=== PATIENT | female | born 1965 | race Two or more races ===

== ENCOUNTER 2018-07-01 18:54 | Inpatient (IN) | payer SELFPAY ==
[~2018-07-01] VITALS: Ht 167.6 cm; Wt 80.6 kg
[2018-07-01 20:59] LABS: Basophils # (auto) 0 uL; Basophils % (auto) 0.1 % (0.0-2.0); Eosinophils # (auto) 0 uL; Hematocrit 44.4 % (36.0-46.0); Hemoglobin 14.7 g/dL (12.2-16.2); Lymphocytes # (auto) 1.2 uL; Lymphocytes % (auto) 6.1 % (10.0-50.0); Mean Corpuscular Hemoglobin 27.4 pg (28.0-32.0); Mean Corpuscular Hgb Conc. 33.1 g/dL (32.0-36.0); Mean Corpuscular Volume 82.7 fL (80.0-100.0); Monocytes % (auto) 5.5 % (0.0-12.0); Neutrophils % (auto) 88.3 % (37.0-80.0); Platelet Count (auto) 395 10^3/uL (140-450); Red Blood Cells 5.37 10^6/uL (4.0-5.20); Red Cell Distribution Width 14.9 % (11.8-14.3); White Blood Cell 19.2 10^3/uL (4.4-10.8)
[2018-07-01 21:08] LABS: Albumin 3.5 g/dL (3.4-5.0); BUN/Creatinine Ratio 19.3; Calcium 9.6 mg/dL (8.5-10.1); Potassium 3.7 mmol/L (3.5-5.1)
[2018-07-01 21:11] LABS: Bilirubin, Total 0.7 mg/dL (0.2-1.0); Total Protein 10.4 g/dL (6.4-8.2)
[2018-07-01] MEDS ORDERED: HYDROcodone-ACET 5/325MG TAB PO ONE (21:15)
[2018-07-01] MEDS ORDERED: ONDANSETRON HCL 4 MG/2 ML VIAL IV ONE (21:30)
[2018-07-01] MEDS ORDERED: fentaNYL CITRATE 100 MCG/2 ML VL IV ONE (21:30)
[2018-07-01] MEDS ORDERED: SODIUM CHLORIDE 0.9% 1,000 ML IV ONE (21:45)
[2018-07-01] MEDS ORDERED: LORazepam 2MG/ML-1ML VIAL IV ONE (21:45)
[2018-07-01] MEDS ORDERED: LEVOFLOXACIN 750MG 150 ML IV ONE (22:15)
[2018-07-02] MEDS ORDERED: VANCOMYCIN PER PHARMACY 0 MG IV SCH
[2018-07-02] MEDS ORDERED: ACETAMINOPHEN 500 MG TAB PO PRN
[2018-07-02] MEDS ORDERED: VANCOMYCIN 1GM/250ML 250 ML IV ONE (01:00)
[2018-07-02] MEDS: PIPERACILLIN-TAZOB 3.375GM 100 ML IV SCH ×5 (01:33→23:28)
[2018-07-02] MEDS: SODIUM CHLORIDE 0.9% 1,000 ML IV SCH ×3 (05:11→20:00)
[2018-07-02 05:44] LABS: Basophils # (auto) 0 uL; Basophils % (auto) 0.2 % (0.0-2.0); Eosinophils # (auto) 0 uL; Eosinophils % (auto) 0.1 % (0.0-7.0); Hematocrit 40.1 % (36.0-46.0); Hemoglobin 13.6 g/dL (12.2-16.2); Lymphocytes # (auto) 0.8 uL; Lymphocytes % (auto) 6.4 % (10.0-50.0); Mean Corpuscular Hgb Conc. 33.9 g/dL (32.0-36.0); Mean Corpuscular Volume 82.7 fL (80.0-100.0); Monocytes # (auto) 0.8 uL; Monocytes % (auto) 6.2 % (0.0-12.0); Neutrophils # (auto) 11.3 uL; Neutrophils % (auto) 87.1 % (37.0-80.0); Platelet Count (auto) 324 10^3/uL (140-450); Red Blood Cells 4.85 10^6/uL (4.0-5.20); Red Cell Distribution Width 14.9 % (11.8-14.3); White Blood Cell 12.9 10^3/uL (4.4-10.8)
[2018-07-02 05:50] VITALS: BP 128/82
[2018-07-02 05:59] LABS: BUN/Creatinine Ratio 31.5; Calcium 8.6 mg/dL (8.5-10.1); Potassium 3.3 mmol/L (3.5-5.1)
[2018-07-02] MEDS ORDERED: metroNIDAZOLE 500MG/100ML 100 ML IV SCH (06:00)
[2018-07-02 09:00] VITALS: BP 133/79
[2018-07-02] MEDS: MORPHINE SULFATE 4 MG/ML SYR/VIAL IV PRN ×3 (09:20→20:34)
[2018-07-02] MEDS: ONDANSETRON HCL 4 MG/2 ML VIAL IV PRN ×3 (09:20→20:34)
[2018-07-02] MEDS ORDERED: GASTROGRAFIN 120 ML SOL ONE (11:10)
[2018-07-02 13:00] VITALS: BP 136/83
[2018-07-02] MEDS: VANCOMYCIN 750 MG in D5W 5% 250 ML IV SCH (14:46)
[2018-07-02 15:21] LABS: Urine Bacteria NONE SEEN /hpf (None Seen); Urine Blood 2+ /uL (Negative); Urine Specific Gravity 1.021 (1.001-1.035); Urine WBC 3 /hpf (0 - 5)
[2018-07-02 17:00] VITALS: BP 126/86
[2018-07-02 22:00] VITALS: BP 124/74
[2018-07-03] MEDS: VANCOMYCIN 750 MG in D5W 5% 250 ML IV SCH (01:40)
[2018-07-03] MEDS: ONDANSETRON HCL 4 MG/2 ML VIAL IV PRN ×2 (03:10→09:01)
[2018-07-03] MEDS: MORPHINE SULFATE 4 MG/ML SYR/VIAL IV PRN ×2 (03:16→09:00)
[2018-07-03] MEDS: PIPERACILLIN-TAZOB 3.375GM 100 ML IV SCH ×2 (05:42→12:14)
[2018-07-03 05:44] VITALS: BP 134/84
[2018-07-03] MEDS: SODIUM CHLORIDE 0.9% 1,000 ML IV SCH (06:00)
[2018-07-03] MEDS ORDERED: PANTOPRAZOLE 40 MG/10 ML VIAL IV SCH (06:00)
[2018-07-03 08:16] LABS: Basophils # (auto) 0 uL; Basophils % (auto) 0.2 % (0.0-2.0); Eosinophils # (auto) 0.1 uL; Eosinophils % (auto) 0.7 % (0.0-7.0); Hematocrit 38.1 % (36.0-46.0); Hemoglobin 12.9 g/dL (12.2-16.2); Lymphocytes # (auto) 0.8 uL; Lymphocytes % (auto) 9.1 % (10.0-50.0); Mean Corpuscular Hemoglobin 27.8 pg (28.0-32.0); Mean Corpuscular Hgb Conc. 33.7 g/dL (32.0-36.0); Mean Corpuscular Volume 82.5 fL (80.0-100.0); Monocytes # (auto) 0.9 uL; Monocytes % (auto) 9.4 % (0.0-12.0); Neutrophils # (auto) 7.3 uL; Neutrophils % (auto) 80.6 % (37.0-80.0); Platelet Count (auto) 363 10^3/uL (140-450); Red Blood Cells 4.62 10^6/uL (4.0-5.20); Red Cell Distribution Width 15.5 % (11.8-14.3); White Blood Cell 9.1 10^3/uL (4.4-10.8)
[2018-07-03 08:30] LABS: Albumin 2.9 g/dL (3.4-5.0); BUN/Creatinine Ratio 20.2; Calcium 8.5 mg/dL (8.5-10.1); Potassium 3.2 mmol/L (3.5-5.1)
[2018-07-03 08:31] LABS: Bilirubin, Total 0.7 mg/dL (0.2-1.0); Total Protein 8.6 g/dL (6.4-8.2)
[2018-07-03 09:00] VITALS: BP 133/91
[2018-07-03 13:00] VITALS: BP 153/91
[2018-07-03] MEDS ORDERED: POTASSIUM CHL 20MEQ/100ML 100 ML IV ONE (14:30)
[2018-07-03] MEDS: SOD CHL 0.9%/ KCL 20MEQ 1,000 ML IV SCH (14:48)
[2018-07-03] MEDS: metroNIDAZOLE 500MG/100ML 100 ML IV SCH ×2 (14:48→22:57)
[2018-07-03 17:00] VITALS: BP 125/82
[2018-07-03] MEDS: cefTRIAXone 1GM/50ML D5W 50 ML IV SCH (18:41)
[2018-07-03 22:00] VITALS: BP 120/76
[2018-07-04] MEDS: SOD CHL 0.9%/ KCL 20MEQ 1,000 ML IV SCH (00:30)
[2018-07-04] MEDS: ONDANSETRON HCL 4 MG/2 ML VIAL IV PRN ×2 (02:35→10:38)
[2018-07-04] MEDS: MORPHINE SULFATE 10 MG/ML INJ 1ML SDV IV PRN ×2 (02:35→10:38)
[2018-07-04 05:29] VITALS: BP 123/76
[2018-07-04] MEDS: metroNIDAZOLE 500MG/100ML 100 ML IV SCH (06:05)
[2018-07-04 06:21] LABS: Basophils # (auto) 0 uL; Basophils % (auto) 0.3 % (0.0-2.0); Eosinophils # (auto) 0.2 uL; Eosinophils % (auto) 2.5 % (0.0-7.0); Hemoglobin 11.4 g/dL (12.2-16.2); Lymphocytes # (auto) 1.2 uL; Lymphocytes % (auto) 18.2 % (10.0-50.0); Mean Corpuscular Hgb Conc. 33.6 g/dL (32.0-36.0); Mean Corpuscular Volume 83.3 fL (80.0-100.0); Monocytes # (auto) 0.9 uL; Monocytes % (auto) 13.4 % (0.0-12.0); Neutrophils # (auto) 4.4 uL; Neutrophils % (auto) 65.6 % (37.0-80.0); Platelet Count (auto) 318 10^3/uL (140-450); Red Blood Cells 4.08 10^6/uL (4.0-5.20); Red Cell Distribution Width 15.4 % (11.8-14.3); White Blood Cell 6.7 10^3/uL (4.4-10.8)
[2018-07-04 06:49] LABS: Albumin 2.4 g/dL (3.4-5.0); BUN/Creatinine Ratio 14.5; Calcium 8.1 mg/dL (8.5-10.1); Potassium 3.4 mmol/L (3.5-5.1)
[2018-07-04 06:53] LABS: Bilirubin, Total 0.4 mg/dL (0.2-1.0); Total Protein 7.1 g/dL (6.4-8.2)
[2018-07-04 08:56] VITALS: BP 114/73
[2018-07-04] MEDS: cefTRIAXone 1GM/50ML D5W 50 ML IV SCH (09:04)
[2018-07-04] MEDS ORDERED: POTASSIUM CHL 20 Meq TABLET PO ONE (09:45)
[2018-07-04] MEDS ORDERED: LEVOFLOXACIN 500 MG TAB PO ONE (12:00)
[2018-07-04 13:01] VITALS: BP 133/79
[2018-07-04] MEDS: metroNIDAZOLE 500 MG TAB PO SCH ×2 (15:07→21:48)
[2018-07-04 17:47] VITALS: BP 122/74
[2018-07-04] MEDS: HYDROcodone-ACET 5/325MG TAB PO PRN (17:54)
[2018-07-04 22:19] VITALS: BP 122/70
[2018-07-05] MEDS: HYDROcodone-ACET 5/325MG TAB PO PRN ×2 (02:09→06:50)
[2018-07-05 04:50] VITALS: BP 132/70
[2018-07-05] MEDS: metroNIDAZOLE 500 MG TAB PO SCH (06:18)
[2018-07-05 08:41] VITALS: BP 126/78
[2018-07-05] MEDS ORDERED: LEVOFLOXACIN 500 MG TAB PO SCH (10:00)
[2018-07-05] MEDS ORDERED: MORPHINE SULFATE 4 MG/ML SYR/VIAL IV PRN (10:00)
[2018-07-05] MEDS: LEVOFLOXACIN 500MG 100 ML IV SCH (10:28)
[2018-07-05] MEDS: SOD CHL 0.9%/ KCL 20MEQ 1,000 ML IV SCH ×2 (10:29→22:38)
[2018-07-05 10:43] LABS: Basophils # (auto) 0 uL; Basophils % (auto) 0.3 % (0.0-2.0); Eosinophils # (auto) 0.2 uL; Eosinophils % (auto) 2.1 % (0.0-7.0); Hematocrit 33.8 % (36.0-46.0); Hemoglobin 11.1 g/dL (12.2-16.2); Lymphocytes # (auto) 1.7 uL; Lymphocytes % (auto) 17.9 % (10.0-50.0); Mean Corpuscular Hemoglobin 27.2 pg (28.0-32.0); Mean Corpuscular Hgb Conc. 32.9 g/dL (32.0-36.0); Mean Corpuscular Volume 82.7 fL (80.0-100.0); Monocytes # (auto) 0.9 uL; Monocytes % (auto) 9.6 % (0.0-12.0); Neutrophils # (auto) 6.9 uL; Neutrophils % (auto) 70.1 % (37.0-80.0); Platelet Count (auto) 353 10^3/uL (140-450); Red Blood Cells 4.09 10^6/uL (4.0-5.20); Red Cell Distribution Width 15.4 % (11.8-14.3); White Blood Cell 9.8 10^3/uL (4.4-10.8)
[2018-07-05 10:51] LABS: INR 1.06 (0.9-1.15); Partial Thromboplastin Time 30.6 sec (23.78-33.04); Prothrombin Time 11.3 sec (9.27-12.13)
[2018-07-05 10:54] LABS: Albumin 2.4 g/dL (3.4-5.0); BUN/Creatinine Ratio 6.3; Calcium 8.6 mg/dL (8.5-10.1); Potassium 3.1 mmol/L (3.5-5.1)
[2018-07-05 10:56] LABS: Bilirubin, Total 0.4 mg/dL (0.2-1.0); Total Protein 7.1 g/dL (6.4-8.2)
[2018-07-05] MEDS ORDERED: POTASSIUM CHLORIDE 40 MEQ, LIDOCAINE 1% (LOCAL ANESTH.) 4 ML in SODIUM CHL 0.9% 100 ML IV ONE (11:15)
[2018-07-05] MEDS: ONDANSETRON HCL 4 MG/2 ML VIAL IV PRN ×2 (13:10→23:52)
[2018-07-05] MEDS: MORPHINE SULF INJ 2 MG/ML SYRINGE 1ML IV PRN ×2 (13:11→23:53)
[2018-07-05 13:57] VITALS: BP 143/88
[2018-07-05] MEDS: metroNIDAZOLE 500MG/100ML 100 ML IV SCH ×2 (14:24→22:38)
[2018-07-05 17:23] VITALS: BP 143/78
[2018-07-05 21:59] VITALS: BP 131/83
[2018-07-05] MEDS: PANTOPRAZOLE 40 MG/10 ML VIAL IV SCH (22:38)
[2018-07-06 05:02] VITALS: BP 151/74
[2018-07-06] MEDS: metroNIDAZOLE 500MG/100ML 100 ML IV SCH ×3 (06:51→21:23)
[2018-07-06 09:00] VITALS: BP 131/76
[2018-07-06] MEDS: SOD CHL 0.9%/ KCL 20MEQ 1,000 ML IV SCH ×3 (09:50→23:32)
[2018-07-06] MEDS: LEVOFLOXACIN 500MG 100 ML IV SCH (09:50)
[2018-07-06] MEDS: PANTOPRAZOLE 40 MG/10 ML VIAL IV SCH ×2 (09:50→21:23)
[2018-07-06] MEDS: MORPHINE SULF INJ 2 MG/ML SYRINGE 1ML IV PRN (09:51)
[2018-07-06] MEDS: ONDANSETRON HCL 4 MG/2 ML VIAL IV PRN (09:51)
[2018-07-06 13:00] VITALS: BP 146/90
[2018-07-06 17:00] VITALS: BP 137/83
[2018-07-06 22:00] VITALS: BP 143/84
[2018-07-07] MEDS: HYDROcodone-ACET 5/325MG TAB PO PRN ×2 (01:21→23:14)
[2018-07-07 05:09] VITALS: BP 146/91
[2018-07-07] MEDS: metroNIDAZOLE 500MG/100ML 100 ML IV SCH ×3 (05:38→21:31)
[2018-07-07 09:00] VITALS: BP 144/94
[2018-07-07] MEDS: SOD CHL 0.9%/ KCL 20MEQ 1,000 ML IV SCH ×2 (09:28→21:31)
[2018-07-07] MEDS: PANTOPRAZOLE 40 MG TAB PO SCH ×2 (11:10→21:31)
[2018-07-07] MEDS: LEVOFLOXACIN 500MG 100 ML IV SCH (11:10)
[2018-07-07] MEDS: MORPHINE SULF INJ 2 MG/ML SYRINGE 1ML IV PRN (12:26)
[2018-07-07] MEDS: ONDANSETRON HCL 4 MG/2 ML VIAL IV PRN (12:27)
[2018-07-07 13:00] VITALS: BP 130/87
[2018-07-07] MEDS ORDERED: MORPHINE SULFATE 4 MG/ML SYR/VIAL IV PRN (15:30)
[2018-07-07 17:00] VITALS: BP 138/94
[2018-07-07 21:59] VITALS: BP 148/88
[2018-07-08 05:00] VITALS: BP 150/89
[2018-07-08] MEDS: metroNIDAZOLE 500MG/100ML 100 ML IV SCH ×3 (05:18→21:30)
[2018-07-08 07:51] LABS: Basophils # (auto) 0 uL
[2018-07-08 07:53] LABS: Basophils % (auto) 0.3 % (0.0-2.0); Eosinophils # (auto) 0.2 uL; Eosinophils % (auto) 1.5 % (0.0-7.0); Hematocrit 34.6 % (36.0-46.0); Hemoglobin 11.5 g/dL (12.2-16.2); Lymphocytes # (auto) 2.1 uL; Lymphocytes % (auto) 19.4 % (10.0-50.0); Mean Corpuscular Hemoglobin 27.6 pg (28.0-32.0); Mean Corpuscular Hgb Conc. 33.2 g/dL (32.0-36.0); Mean Corpuscular Volume 82.9 fL (80.0-100.0); Monocytes # (auto) 0.8 uL; Monocytes % (auto) 7.3 % (0.0-12.0); Neutrophils # (auto) 7.7 uL; Neutrophils % (auto) 71.5 % (37.0-80.0); Platelet Count (auto) 455 10^3/uL (140-450); Red Blood Cells 4.17 10^6/uL (4.0-5.20); Red Cell Distribution Width 15.2 % (11.8-14.3); White Blood Cell 10.8 10^3/uL (4.4-10.8)
[2018-07-08 08:00] VITALS: BP 157/92
[2018-07-08 08:00] LABS: Calcium 8.6 mg/dL (8.5-10.1); Potassium 3.7 mmol/L (3.5-5.1)
[2018-07-08 08:02] LABS: BUN/Creatinine Ratio 4.6
[2018-07-08] MEDS: SOD CHL 0.9%/ KCL 20MEQ 1,000 ML IV SCH ×2 (08:50→16:00)
[2018-07-08] MEDS: ONDANSETRON HCL 4 MG/2 ML VIAL IV PRN (09:04)
[2018-07-08] MEDS ORDERED: METOCLOPRAMIDE HCL 5MG/ml INJ 2ml VIAL IV ONE (09:15)
[2018-07-08] MEDS: LEVOFLOXACIN 500MG 100 ML IV SCH (09:51)
[2018-07-08] MEDS: PANTOPRAZOLE 40 MG TAB PO SCH ×2 (09:52→21:31)
[2018-07-08 12:00] VITALS: BP 143/90
[2018-07-08] MEDS: METOCLOPRAMIDE HCL 5MG/ml INJ 2ml VIAL IV SCH ×2 (13:46→21:30)
[2018-07-08 16:00] VITALS: BP 150/80
[2018-07-08 22:00] VITALS: BP 128/91
[2018-07-09] MEDS: SOD CHL 0.9%/ KCL 20MEQ 1,000 ML IV SCH ×2 (04:00→09:51)
[2018-07-09] MEDS: METOCLOPRAMIDE HCL 5MG/ml INJ 2ml VIAL IV SCH (05:13)
[2018-07-09] MEDS: HYDROcodone-ACET 5/325MG TAB PO PRN ×3 (05:13→14:03)
[2018-07-09] MEDS: metroNIDAZOLE 500MG/100ML 100 ML IV SCH ×2 (05:13→14:00)
[2018-07-09 05:53] VITALS: BP 151/90
[2018-07-09 08:52] VITALS: BP 122/86
[2018-07-09] MEDS: LEVOFLOXACIN 500MG 100 ML IV SCH (09:43)
[2018-07-09] MEDS: PANTOPRAZOLE 40 MG TAB PO SCH (09:43)
[2018-07-09 13:00] VITALS: BP 142/86
== END 2018-07-09 15:17 | disposition home or self-care (01) | DRG 389 ==
LOC: ER 18:54 → TELE 07-02 00:06 → TELE-CENTR 07-02 00:50 → CENTRAL 07-03 14:32
PROVIDERS: ADMIT Nurse Practitioner Family; ATTEND Internal Medicine
DX: K56.690 Other partial intestinal obstruction (principal); R65.10 Systemic inflammatory response syndrome (SIRS) of non-infectious origin without acute organ dysfunction; K52.9 Noninfective gastroenteritis and colitis, unspecified; M19.90 Unspecified osteoarthritis, unspecified site; E87.6 Hypokalemia; N83.202 Unspecified ovarian cyst, left side; E66.9 Obesity, unspecified; Z68.28 Body mass index [BMI] 28.0-28.9, adult
CPT/HCPCS: 36415; 74021; 74176; 74250; 80048; 80053; 81001; 82150; 83605; 83615; 83690; 83735; 84132; 85025; 85610; 85730; 87040; 87045; 87081; 87493; 87899; 93005; 96374; 96375; 99291; C9113; G0378; J0696; J1956; J2001; J2405; J2543; J3480; J3490; J7060

== ENCOUNTER 2018-11-17 14:33 | Emergency (ER) | payer MEDICAID ==
[~2018-11-17] VITALS: Ht 167.6 cm; Wt 78.0 kg
[2018-11-17 15:30] LABS: Urine Bacteria NONE SEEN /hpf (None Seen); Urine Blood 1+ /uL (Negative); Urine Specific Gravity 1.014 (1.001-1.035); Urine WBC 2 /hpf (0 - 5)
[2018-11-17 16:15] LABS: Basophils # (auto) 0.1 uL; Eosinophils # (auto) 0.1 uL; Eosinophils % (auto) 2.3 % (0.0-7.0); Hematocrit 39.2 % (36.0-46.0); Hemoglobin 12.9 g/dL (12.2-16.2); Lymphocytes # (auto) 1.8 uL; Lymphocytes % (auto) 29.5 % (10.0-50.0); Mean Corpuscular Hgb Conc. 32.9 g/dL (32.0-36.0); Mean Corpuscular Volume 85.3 fL (80.0-100.0); Monocytes # (auto) 0.5 uL; Monocytes % (auto) 8.2 % (0.0-12.0); Neutrophils # (auto) 3.5 uL; Nucleated Red Blood Cells % 0.2 %; Platelet Count (auto) 271 10^3/uL (140-450); Red Cell Distribution Width 14.5 % (11.8-14.3)
[2018-11-17 16:18] LABS: Potassium 3.8 mmol/L (3.5-5.1)
[2018-11-17 16:22] LABS: Albumin 3.6 g/dL (3.4-5.0); Calcium 8.8 mg/dL (8.5-10.1)
[2018-11-17 16:27] LABS: BUN/Creatinine Ratio 5.4; Bilirubin, Total 0.2 mg/dL (0.2-1.0); Total Protein 7.9 g/dL (6.4-8.2)
[2018-11-17 18:19] VITALS: BP 166/84
== END 2018-11-17 18:12 | disposition home or self-care (01) ==
LOC: ER 14:33
DX: R10.84 Generalized abdominal pain (principal); R19.4 Change in bowel habit; R42 Dizziness and giddiness
CPT/HCPCS: 36415; 74176; 80053; 81001; 82150; 83690; 83735; 85025; 93005; 94761

== ENCOUNTER 2019-02-17 19:58 | Emergency (ER) | payer MEDICAID ==
[~2019-02-17] VITALS: Ht 170.2 cm; Wt 76.2 kg
[2019-02-17 20:59] LABS: Urine Bacteria NONE SEEN /hpf (None Seen); Urine Blood 1+ /uL (Negative); Urine Hyaline Cast FEW /lpf (0 - 2); Urine Mucus FEW (None Seen); Urine Specific Gravity 1.022 (1.001-1.035); Urine WBC 14 /hpf (0 - 5)
[2019-02-17 22:03] LABS: Basophils # (auto) 0 uL; Basophils % (auto) 0.5 % (0.0-2.0); Eosinophils # (auto) 0.2 uL; Eosinophils % (auto) 2.6 % (0.0-7.0); Hematocrit 44.1 % (36.0-46.0); Hemoglobin 14.8 g/dL (12.2-16.2); Lymphocytes # (auto) 1.9 uL; Lymphocytes % (auto) 27.9 % (10.0-50.0); Mean Corpuscular Hemoglobin 27.8 pg (28.0-32.0); Mean Corpuscular Hgb Conc. 33.5 g/dL (32.0-36.0); Mean Corpuscular Volume 83.2 fL (80.0-100.0); Monocytes # (auto) 0.6 uL; Monocytes % (auto) 9.4 % (0.0-12.0); Neutrophils % (auto) 59.6 % (37.0-80.0); Nucleated Red Blood Cells % 0.1 %; Platelet Count (auto) 301 10^3/uL (140-450); Red Blood Cells 5.31 10^6/uL (4.0-5.20); Red Cell Distribution Width 13.9 % (11.8-14.3); White Blood Cell 6.7 10^3/uL (4.4-10.8)
[2019-02-17 22:16] LABS: Alanine Aminotransferase 26 U/L (13-56); Albumin 4.1 g/dL (3.4-5.0); Anion Gap 9 (5-15); Aspartate Aminotransferase 19 U/L (15-37); BUN/Creatinine Ratio 12.2; Blood Urea Nitrogen 11 mg/dL (7-18); Calcium 9.4 mg/dL (8.5-10.1); Carbon Dioxide 28 mmol/L (21-32); Chloride 104 mmol/L (98-107); GFR African American 85 mL/min; GFR Non-African American 70 mL/min; Glucose 117 mg/dL (74-106); Lipase 89 U/L (73-393); Potassium 3.6 mmol/L (3.5-5.1); Sodium 141 mmol/L (136-145)
[2019-02-17 22:22] LABS: Alkaline Phosphatase 128 U/L (45-117); Bilirubin, Total 0.4 mg/dL (0.2-1.0); Total Protein 9.3 g/dL (6.4-8.2)
[2019-02-17] MEDS ORDERED: SODIUM CHLORIDE 0.9% 1,000 ML IV ONE (23:30)
[2019-02-17] MEDS ORDERED: MORPHINE SULF INJ 2 MG/ML SYRINGE 1ML IV ONE (23:30)
[2019-02-17] MEDS ORDERED: ONDANSETRON HCL 4 MG/2 ML VIAL IV ONE (23:30)
[2019-02-18 01:00] VITALS: BP 115/74
== END 2019-02-18 00:42 | disposition home or self-care (01) ==
LOC: ER 20:02
DX: K29.70 Gastritis, unspecified, without bleeding (principal); N39.0 Urinary tract infection, site not specified
CPT/HCPCS: 36415; 74176; 80053; 81001; 83690; 84484; 85025; 93005; 96361; 96374; 96375; 99284; J2270; J2405; J7030

== ENCOUNTER 2021-02-25 13:53 | Emergency (ER) | payer MEDICAID ==
[~2021-02-25] VITALS: Ht 167.6 cm; Wt 81.6 kg
[2021-02-25 14:26] VITALS: BP 133/91
[2021-02-25] MEDS ORDERED: MECLIZINE HCL 25 MG TAB PO ONE (14:30)
[2021-02-25] MEDS ORDERED: SODIUM CHLORIDE 0.9% 1,000 ML IV ONE ×2 (14:30)
[2021-02-25 15:17] LABS: Basophils # (auto) 0 10 ^3/uL (0-0.2); Basophils % (auto) 0.5 % (0.0-2.0); Eosinophils # (auto) 0.1 10 ^3/uL (0-0.8); Eosinophils % (auto) 1.5 % (0.0-7.0); Hematocrit 38.2 % (36.0-46.0); Hemoglobin 12.9 g/dL (12.2-16.2); Lymphocytes # (auto) 2.5 10 ^3/uL (0.4-5.4); Lymphocytes % (auto) 36.1 % (10.0-50.0); Mean Corpuscular Hemoglobin 27.8 pg (28.0-32.0); Mean Corpuscular Hgb Conc. 33.7 g/dL (32.0-36.0); Mean Corpuscular Volume 82.7 fL (80.0-100.0); Monocytes # (auto) 0.5 10 ^3/uL (0-1.3); Monocytes % (auto) 7.9 % (0.0-12.0); Neutrophils # (auto) 3.7 10 ^3/uL (1.6-8.6); Red Blood Cells 4.62 10^6/uL (4.0-5.20); Red Cell Distribution Width 14.4 % (11.8-14.3); White Blood Cell 6.9 10^3/uL (4.4-10.8)
[2021-02-25 15:36] LABS: Anion Gap 4 (5-15); Blood Urea Nitrogen 15 mg/dL (7-18); Calcium 8.9 mg/dL (8.5-10.1); Carbon Dioxide 27 mmol/L (21-32); Chloride 106 mmol/L (98-107); Glucose 88 mg/dL (74-106); Potassium 3.6 mmol/L (3.5-5.1); Sodium 137 mmol/L (136-145)
[2021-02-25 15:38] LABS: BUN/Creatinine Ratio 22.1; GFR African American 116 mL/min; GFR Non-African American 96 mL/min
[2021-02-25 15:43] LABS: Alanine Aminotransferase 24 U/L (13-56); Alkaline Phosphatase 95 U/L (45-117); Aspartate Aminotransferase 14 U/L (15-37); Bilirubin, Total 0.3 mg/dL (0.2-1.0); Total Protein 8.1 g/dL (6.4-8.2)
[2021-02-25 18:37] LABS: Urine Bacteria NONE SEEN /hpf (None Seen); Urine Blood TRACE /uL (Negative); Urine Specific Gravity 1.017 (1.001-1.035); Urine WBC 1 /hpf (0 - 5)
== END 2021-02-25 17:08 | disposition home or self-care (01) ==
LOC: ER 13:53
DX: R53.1 Weakness (principal); R42 Dizziness and giddiness; I10 Essential (primary) hypertension
CPT/HCPCS: 36415; 70450; 71045; 80053; 81001; 84484; 85025; 93005; 99285; J8597

== ENCOUNTER → 2021-10-02 | Outpatient (CLI) | payer MEDICAID | END | disposition home or self-care (01) | LOC: LAB 13:48 | PROVIDERS: ATTEND Internal Medicine Pulmonary Disease | DX: Z01.812 Encounter for preprocedural laboratory examination (principal); Z20.822 Contact with and (suspected) exposure to COVID-19 | CPT/HCPCS: 36415; 87426 ==

== ENCOUNTER → 2021-10-03 | Outpatient (CLI) | payer MEDICAID ==
[~2021-10-03] MED LIST: ALBUTEROL SULF 2.5 MG/0.5ML(0.5%) NEB SOLN ONE
== END | disposition home or self-care (01) ==
LOC: RT 15:38
PROVIDERS: ATTEND Internal Medicine Pulmonary Disease
DX: U07.1 COVID-19 (principal)
CPT/HCPCS: 94060; 94727; 94729

== ENCOUNTER → 2021-10-09 | Outpatient (CLI) | payer MEDICAID | END | disposition home or self-care (01) | LOC: XYW 10:09 | PROVIDERS: ATTEND Internal Medicine Pulmonary Disease | DX: U07.1 COVID-19 (principal); I08.3 Combined rheumatic disorders of mitral, aortic and tricuspid valves; I10 Essential (primary) hypertension | CPT/HCPCS: 93306 ==

== ENCOUNTER 2022-01-30 10:02 | Inpatient (IN) | payer MEDICAID ==
[~2022-01-30] VITALS: Ht 167.6 cm; Wt 81.0 kg
[2022-01-30] MEDS ORDERED: ASPirin 81 mg TAB PO ONE (10:45)
[2022-01-30 11:07] LABS: Basophils # (auto) 0 10 ^3/uL (0-0.2); Eosinophils # (auto) 0.1 10 ^3/uL (0-0.8); Hemoglobin 12.8 g/dL (12.2-16.2); Mean Corpuscular Volume 83.4 fL (80.0-100.0); Neutrophils # (auto) 3.9 10 ^3/uL (1.6-8.6); White Blood Cell 6.5 10^3/uL (4.4-10.8)
[2022-01-30 11:12] LABS: Basophils % (auto) 0.5 % (0.0-2.0); Eosinophils % (auto) 1.8 % (0.0-7.0); Hematocrit 39.5 % (36.0-46.0); Lymphocytes # (auto) 1.9 10 ^3/uL (0.4-5.4); Lymphocytes % (auto) 28.6 % (10.0-50.0); Mean Corpuscular Hemoglobin 26.9 pg (28.0-32.0); Mean Corpuscular Hgb Conc. 32.3 g/dL (32.0-36.0); Monocytes # (auto) 0.6 10 ^3/uL (0-1.3); Monocytes % (auto) 9.5 % (0.0-12.0); Neutrophils % (auto) 59.6 % (37.0-80.0); Nucleated Red Blood Cells % 0.1 %; Red Blood Cells 4.74 10^6/uL (4.0-5.20); Red Cell Distribution Width 14.6 % (11.8-14.3)
[2022-01-30 11:17] LABS: Partial Thromboplastin Time 28.4 sec (23.6-33.0)
[2022-01-30 11:25] LABS: Potassium 4.1 mmol/L (3.5-5.1)
[2022-01-30 11:27] LABS: Urine Bacteria MANY /hpf (None Seen); Urine Blood 3+ /uL (Negative); Urine Budding Yeast OCCASIONAL /hpf (None Seen); Urine Mucus FEW (None Seen); Urine Specific Gravity 1.018 (1.001-1.035); Urine WBC 1100 /hpf (0 - 5); Urine WBC Clumps PRESENT /hpf (None Seen)
[2022-01-30 11:31] LABS: Albumin 3.7 g/dL (3.4-5.0); BUN/Creatinine Ratio 16.9; Bilirubin, Total 0.6 mg/dL (0.2-1.0); Magnesium 2.3 mg/dL (1.6-2.6)
[2022-01-30] MEDS ORDERED: cefTRIAXone 1GM/50ML D5W 50 ML IV ONE (13:45)
[2022-01-30] MEDS ORDERED: NITROGLYCERIN 0.4 MG SL TAB SL ONE (13:45)
[2022-01-30] MEDS ORDERED: ACETAMINOPHEN 325 MG TAB PO PRN (14:30)
[2022-01-30] MEDS ORDERED: MORPHINE SULFATE INJ 2 MG/ml SYRG IV PRN (14:30)
[2022-01-30] MEDS ORDERED: HYDROcodone-ACET 5/325MG TAB PO PRN (14:30)
[2022-01-30] MEDS ORDERED: NITROGLYCERIN 0.4 MG SL TAB SL PRN (14:30)
[2022-01-30] MEDS ORDERED: ONDANSETRON HCL 4 MG/2 ML VIAL IV PRN (14:30)
[2022-01-30] MEDS: MORPHINE SULFATE INJ 2 MG/ml SYRG IV PRN ×2 (15:25→22:49)
[2022-01-30 22:36] VITALS: BP 131/77
[2022-01-30] MEDS ORDERED: LISI-716 (23:02)
[2022-01-31 05:25] VITALS: BP 141/82
[2022-01-31 08:00] VITALS: BP 150/86
[2022-01-31] MEDS ORDERED: ENOXAPARIN SOD 40 MG/0.4 ML SYRINGE SC SCH (10:00)
[2022-01-31] MEDS ORDERED: CEPH-509 PO (10:51)
[2022-01-31] MEDS ORDERED: cefTRIAXone 1GM/50ML D5W 50 ML IV SCH (11:15)
[2022-01-31 12:00] VITALS: BP 151/91
[2022-01-31 15:54] VITALS: BP 150/86
== END 2022-01-31 17:59 | disposition home or self-care (01) | DRG 203 ==
LOC: ER 10:02 → TELE 14:22 → UNDOADMIN 14:22 → TELE 14:26 → TELE-EAST 20:30
PROVIDERS: ADMIT Internal Medicine; ATTEND Internal Medicine
DX: R07.9 Chest pain, unspecified (principal); E66.9 Obesity, unspecified; N39.0 Urinary tract infection, site not specified; Z20.822 Contact with and (suspected) exposure to COVID-19; R31.29 Other microscopic hematuria; N83.202 Unspecified ovarian cyst, left side; I12.9 Hypertensive chronic kidney disease with stage 1 through stage 4 chronic kidney disease, or unspecified chronic kidney disease; N18.9 Chronic kidney disease, unspecified; Z68.28 Body mass index [BMI] 28.0-28.9, adult; Z86.16 Personal history of COVID-19
CPT/HCPCS: 36415; 71045; 76856; 80053; 81001; 83735; 83880; 84443; 84484; 85025; 85610; 85730; 93005; 96365; 99291; G0378; J0696

== ENCOUNTER 2022-02-17 22:15 | Emergency (ER) | payer MEDICAID ==
[~2022-02-17] VITALS: Ht 167.6 cm; Wt 81.8 kg
[~2022-02-17 22:15] MED LIST changes: -ALBUTEROL SULF 2.5 MG/0.5ML(0.5%) NEB SOLN ONE; +CEPH-509 PO; +LISI-716
[2022-02-17 22:58] LABS: Basophils # (auto) 0 10 ^3/uL (0-0.2); Basophils % (auto) 0.6 % (0.0-2.0); Eosinophils # (auto) 0.1 10 ^3/uL (0-0.8); Eosinophils % (auto) 1.3 % (0.0-7.0); Hematocrit 38.5 % (36.0-46.0); Hemoglobin 12.8 g/dL (12.2-16.2); Lymphocytes # (auto) 2.6 10 ^3/uL (0.4-5.4); Lymphocytes % (auto) 31.3 % (10.0-50.0); Mean Corpuscular Hemoglobin 27.3 pg (28.0-32.0); Mean Corpuscular Hgb Conc. 33.2 g/dL (32.0-36.0); Mean Corpuscular Volume 82.4 fL (80.0-100.0); Monocytes # (auto) 0.6 10 ^3/uL (0-1.3); Monocytes % (auto) 7.1 % (0.0-12.0); Neutrophils # (auto) 4.9 10 ^3/uL (1.6-8.6); Neutrophils % (auto) 59.7 % (37.0-80.0); Red Blood Cells 4.67 10^6/uL (4.0-5.20); Red Cell Distribution Width 14.5 % (11.8-14.3); White Blood Cell 8.2 10^3/uL (4.4-10.8)
[2022-02-17] MEDS ORDERED: ONDANSETRON ODT 4 MG TAB PO ONE (23:00)
[2022-02-17] MEDS ORDERED: OXYCODONE W/ ACETAMINOPHEN 5/325MG TABLET PO ONE (23:00)
[2022-02-17 23:16] LABS: Calcium 9.1 mg/dL (8.5-10.1); Potassium 3.6 mmol/L (3.5-5.1)
[2022-02-17 23:26] LABS: BUN/Creatinine Ratio 26.7; Bilirubin, Total 0.2 mg/dL (0.2-1.0)
[2022-02-18 01:47] VITALS: BP 152/87
[2022-02-18] MEDS ORDERED: PERCOT PO (02:12)
== END 2022-02-18 02:39 | disposition home or self-care (01) ==
LOC: ER 22:15
DX: R07.89 Other chest pain (principal); I12.9 Hypertensive chronic kidney disease with stage 1 through stage 4 chronic kidney disease, or unspecified chronic kidney disease; N18.9 Chronic kidney disease, unspecified; Z79.899 Other long term (current) drug therapy
CPT/HCPCS: 36415; 71045; 71250; 80053; 83880; 84484; 85025; 93005; 99285; Q0162

== ENCOUNTER 2022-05-15 13:39 | Emergency (ER) | payer MEDICAID ==
[~2022-05-15] VITALS: Ht 170.2 cm; Wt 83.6 kg
[~2022-05-15 13:39] MED LIST changes: +PERCOT PO
[2022-05-15] MEDS ORDERED: ACETAMINOPHEN 500 MG TAB PO ONE (14:00)
[2022-05-15] MEDS ORDERED: MECLIZINE HCL 25 MG TAB PO ONE (14:00)
[2022-05-15 14:24] LABS: Basophils # (auto) 0 10 ^3/uL (0-0.2); Basophils % (auto) 0.6 % (0.0-2.0); Eosinophils # (auto) 0.1 10 ^3/uL (0-0.8); Eosinophils % (auto) 1.7 % (0.0-7.0); Hematocrit 39.4 % (36.0-46.0); Hemoglobin 12.9 g/dL (12.2-16.2); Lymphocytes # (auto) 2.4 10 ^3/uL (0.4-5.4); Lymphocytes % (auto) 35.9 % (10.0-50.0); Mean Corpuscular Hemoglobin 27.2 pg (28.0-32.0); Mean Corpuscular Hgb Conc. 32.7 g/dL (32.0-36.0); Mean Corpuscular Volume 83.2 fL (80.0-100.0); Monocytes # (auto) 0.5 10 ^3/uL (0-1.3); Monocytes % (auto) 6.9 % (0.0-12.0); Neutrophils # (auto) 3.7 10 ^3/uL (1.6-8.6); Neutrophils % (auto) 54.9 % (37.0-80.0); Red Blood Cells 4.73 10^6/uL (4.0-5.20); Red Cell Distribution Width 14.3 % (11.8-14.3); White Blood Cell 6.7 10^3/uL (4.4-10.8)
[2022-05-15 14:41] LABS: Albumin 3.9 g/dL (3.4-5.0); Calcium 8.8 mg/dL (8.5-10.1); Potassium 3.9 mmol/L (3.5-5.1)
[2022-05-15 14:43] LABS: Urine Bacteria FEW /hpf (None Seen); Urine Blood 1+ /uL (Negative); Urine Mucus FEW (None Seen); Urine Specific Gravity 1.022 (1.001-1.035); Urine WBC 3 /hpf (0 - 5)
[2022-05-15 14:44] LABS: Bilirubin, Total 0.4 mg/dL (0.2-1.0); Total Protein 7.9 g/dL (6.4-8.2)
[2022-05-15] MEDS ORDERED: CEPH-510 PO (15:12)
[2022-05-15] MEDS ORDERED: ACET-1304 PO (15:12)
[2022-05-15] MEDS ORDERED: IBUP800T27 PO (15:12)
[2022-05-15] MEDS ORDERED: MECL25TA18 PO (15:13)
[2022-05-15] MEDS ORDERED: cefTRIAXone SOD 1,000 MG VL IM ONE (15:15)
[2022-05-15 15:27] LABS: INR 0.95 (0.9-1.15)
[2022-05-15 15:54] VITALS: BP 145/85
[2022-05-15 16:18] LABS: BUN/Creatinine Ratio 17.6
== END 2022-05-15 15:56 | disposition home or self-care (01) ==
LOC: ER 13:40
DX: R51.9 Headache, unspecified (principal); N39.0 Urinary tract infection, site not specified; I10 Essential (primary) hypertension
CPT/HCPCS: 36415; 70450; 71045; 80053; 81001; 81025; 83880; 84484; 85025; 85610; 85730; 93005; 96372; 99285; J0696; J8597

== ENCOUNTER 2022-06-21 12:55 | Inpatient (IN) | payer MEDICAID ==
[~2022-06-21] VITALS: Ht 167.6 cm; Wt 85.9 kg
[~2022-06-21 12:55] MED LIST changes: +ACET-1304 PO; +CEPH-510 PO; +IBUP800T27 PO; +MECL25TA18 PO
[2022-06-21 13:13] LABS: Basophils # (auto) 0 10 ^3/uL (0-0.2); Basophils % (auto) 0.8 % (0.0-2.0); Eosinophils # (auto) 0.1 10 ^3/uL (0-0.8); Eosinophils % (auto) 2.2 % (0.0-7.0); Hematocrit 34.1 % (36.0-46.0); Hemoglobin 11.2 g/dL (12.2-16.2); Lymphocytes # (auto) 1.7 10 ^3/uL (0.4-5.4); Lymphocytes % (auto) 28.3 % (10.0-50.0); Mean Corpuscular Hemoglobin 27.4 pg (28.0-32.0); Mean Corpuscular Volume 83.1 fL (80.0-100.0); Monocytes # (auto) 0.4 10 ^3/uL (0-1.3); Monocytes % (auto) 6.9 % (0.0-12.0); Neutrophils # (auto) 3.8 10 ^3/uL (1.6-8.6); Neutrophils % (auto) 61.8 % (37.0-80.0); Nucleated Red Blood Cells % 0.1 %; Red Cell Distribution Width 14.2 % (11.8-14.3); White Blood Cell 6.2 10^3/uL (4.4-10.8)
[2022-06-21 13:38] LABS: Albumin 3.4 g/dL (3.4-5.0); BUN/Creatinine Ratio 8.6; Bilirubin, Total 0.2 mg/dL (0.2-1.0); Calcium 8.5 mg/dL (8.5-10.1); Potassium 3.6 mmol/L (3.5-5.1); Total Protein 7.1 g/dL (6.4-8.2)
[2022-06-21] MEDS ORDERED: NITROGLYCERIN 0.4MG/DOSE SPRAY 4.9GM SL ONE (20:00)
[2022-06-21] MEDS ORDERED: TEMAZEPAM 15 MG CAP PO PRN (22:15)
[2022-06-21] MEDS ORDERED: NITROGLYCERIN 0.4 MG SL TAB SL PRN (22:15)
[2022-06-21] MEDS ORDERED: HYDROcodone-ACET 5/325MG TAB PO PRN (22:15)
[2022-06-22] MEDS: ONDANSETRON HCL 4 MG/2 ML VIAL IV PRN ×5 (00:55→22:09)
[2022-06-22] MEDS: MORPHINE SULFATE INJ 2 MG/ml SYRG IV PRN ×5 (00:55→22:08)
[2022-06-22 01:03] LABS: Cholesterol 182 mg/dL (< 200); LDL Cholesterol 132 mg/dL (< 100); Triglycerides 244 mg/dL (< 150)
[2022-06-22 01:05] LABS: HDL Cholesterol 31 mg/dL (40-59)
[2022-06-22] MEDS: HYDROcodone-ACET 5/325MG TAB PO PRN (03:22)
[2022-06-22 05:04] LABS: Basophils # (auto) 0 10 ^3/uL (0-0.2); Basophils % (auto) 0.6 % (0.0-2.0); Eosinophils # (auto) 0.1 10 ^3/uL (0-0.8); Eosinophils % (auto) 1.8 % (0.0-7.0); Hematocrit 32.7 % (36.0-46.0); Hemoglobin 10.8 g/dL (12.2-16.2); Lymphocytes % (auto) 27.5 % (10.0-50.0); Mean Corpuscular Hemoglobin 27.5 pg (28.0-32.0); Mean Corpuscular Hgb Conc. 32.9 g/dL (32.0-36.0); Mean Corpuscular Volume 83.3 fL (80.0-100.0); Monocytes # (auto) 0.6 10 ^3/uL (0-1.3); Monocytes % (auto) 8.1 % (0.0-12.0); Neutrophils # (auto) 4.4 10 ^3/uL (1.6-8.6); Red Blood Cells 3.93 10^6/uL (4.0-5.20); Red Cell Distribution Width 14.4 % (11.8-14.3); White Blood Cell 7.2 10^3/uL (4.4-10.8)
[2022-06-22 05:28] LABS: BUN/Creatinine Ratio 9.2; Calcium 8.3 mg/dL (8.5-10.1); Potassium 3.9 mmol/L (3.5-5.1)
[2022-06-22] MEDS: ASPirin 81 mg TAB PO SCH (10:00)
[2022-06-22] MEDS: LISINOPRIL 10 MG TAB PO SCH (10:00)
[2022-06-22] MEDS: ENOXAPARIN SOD 40 MG/0.4 ML SYRINGE SC SCH (10:00)
[2022-06-22 11:21] LABS: Urine Bacteria NONE SEEN /hpf (None Seen); Urine Blood Negative /uL (Negative); Urine Specific Gravity 1.014 (1.001-1.035); Urine WBC 6 /hpf (0 - 5)
[2022-06-22] MEDS ORDERED: IOHEXOL 350 MG/ML 100ML IJ ONE (12:53)
[2022-06-22] MEDS: METOPROLOL SUCCINATE XL 50 MG TAB PO SCH (12:54)
[2022-06-22 19:26] VITALS: BP 145/75
[2022-06-22 20:00] VITALS: BP 145/75
[2022-06-22] MEDS: ATORVASTATIN 20 MG TAB PO SCH (21:51)
[2022-06-22 22:11] VITALS: BP 145/75
[2022-06-23 05:00] VITALS: BP 131/65
[2022-06-23] MEDS: HYDROcodone-ACET 5/325MG TAB PO PRN ×2 (06:31→18:23)
[2022-06-23 09:00] VITALS: BP 138/82
[2022-06-23] MEDS: LISINOPRIL 10 MG TAB PO SCH (10:27)
[2022-06-23] MEDS: METOPROLOL SUCCINATE XL 50 MG TAB PO SCH (10:27)
[2022-06-23] MEDS: ENOXAPARIN SOD 40 MG/0.4 ML SYRINGE SC SCH (10:27)
[2022-06-23] MEDS: ASPirin 81 mg TAB PO SCH (10:27)
[2022-06-23 13:00] VITALS: BP 147/84
[2022-06-23 16:48] VITALS: BP 132/60
[2022-06-23] MEDS: ATORVASTATIN 20 MG TAB PO SCH (21:05)
[2022-06-23 22:00] VITALS: BP 122/68
[2022-06-24] MEDS: HYDROcodone-ACET 5/325MG TAB PO PRN ×3 (01:54→21:26)
[2022-06-24 05:00] VITALS: BP 135/73
[2022-06-24 08:56] VITALS: BP 126/76
[2022-06-24] MEDS: ASPirin 81 mg TAB PO SCH (10:28)
[2022-06-24] MEDS: METOPROLOL SUCCINATE XL 50 MG TAB PO SCH (10:28)
[2022-06-24] MEDS: ENOXAPARIN SOD 40 MG/0.4 ML SYRINGE SC SCH (10:29)
[2022-06-24] MEDS: LISINOPRIL 10 MG TAB PO SCH (10:29)
[2022-06-24 13:00] VITALS: BP 169/84
[2022-06-24] MEDS ORDERED: METOPROLOL SUCCINATE XL 50 MG TAB PO ONE (13:15)
[2022-06-24] MEDS ORDERED: KETOROLAC TROMETH 30 MG/ML 1ML VIAL IV ONE (14:30)
[2022-06-24 17:00] VITALS: BP 160/83
[2022-06-24] MEDS: ATORVASTATIN 20 MG TAB PO SCH (21:21)
[2022-06-24 22:00] VITALS: BP 147/80
[2022-06-25] MEDS: HYDROcodone-ACET 5/325MG TAB PO PRN (05:43)
[2022-06-25 09:00] VITALS: BP 146/64
[2022-06-25] MEDS ORDERED: IBUP800T27 PO (09:50)
[2022-06-25] MEDS: ASPirin 81 mg TAB PO SCH (09:55)
[2022-06-25] MEDS: ENOXAPARIN SOD 40 MG/0.4 ML SYRINGE SC SCH (09:56)
[2022-06-25] MEDS: LISINOPRIL 10 MG TAB PO SCH (09:56)
[2022-06-25] MEDS: METOPROLOL SUCCINATE XL 50 MG TAB PO SCH (09:59)
== END 2022-06-25 12:17 | disposition home or self-care (01) | DRG 203 ==
LOC: ER 12:57 → TELE 22:24 → TELE-EAST 06-22 18:08
PROVIDERS: ADMIT Nurse Practitioner; ATTEND Nurse Practitioner Acute Care
DX: R07.89 Other chest pain (principal); I13.0 Hypertensive heart and chronic kidney disease with heart failure and stage 1 through stage 4 chronic kidney disease, or unspecified chronic kidney disease; I50.9 Heart failure, unspecified; E66.9 Obesity, unspecified; E78.5 Hyperlipidemia, unspecified; G47.30 Sleep apnea, unspecified; N18.9 Chronic kidney disease, unspecified; R79.89 Other specified abnormal findings of blood chemistry; Z68.30 Body mass index [BMI] 30.0-30.9, adult
CPT/HCPCS: 36415; 71045; 71275; 80048; 80053; 80061; 81001; 83880; 84443; 84484; 85025; 85379; 85652; 86141; 86431; 87426; 93005; 93306; 93886; 96372; 96374; 96375; G0378; J1885; J2405

== ENCOUNTER 2023-05-02 18:54 | Emergency (ER) | payer MEDICAID ==
[~2023-05-02] VITALS: Ht 170.2 cm; Wt 82.2 kg
[~2023-05-02 18:54] MED LIST changes: +IBUP-1456 PO; -IBUP800T27 PO; -LISI-716; +LISI10TA34; +MECL1TAB32 PO; -MECL25TA18 PO
[2023-05-02] MEDS ORDERED: HYDROmorphone HCL 2 MG/ML VL/or syr IM ONE (19:30)
[2023-05-02 20:00] LABS: Basophils # (auto) 0.1 10 ^3/uL (0-0.2); Basophils % (auto) 0.8 % (0.0-2.0); Eosinophils # (auto) 0.2 10 ^3/uL (0-0.8); Hematocrit 38.8 % (36.0-46.0); Hemoglobin 12.8 g/dL (12.2-16.2); Lymphocytes # (auto) 2.5 10 ^3/uL (0.4-5.4); Lymphocytes % (auto) 33.1 % (10.0-50.0); Mean Corpuscular Hemoglobin 27.1 pg (28.0-32.0); Mean Corpuscular Volume 82.2 fL (80.0-100.0); Monocytes # (auto) 0.5 10 ^3/uL (0-1.3); Monocytes % (auto) 6.7 % (0.0-12.0); Neutrophils # (auto) 4.3 10 ^3/uL (1.6-8.6); Neutrophils % (auto) 57.4 % (37.0-80.0); Nucleated Red Blood Cells % 0.1 %; Red Blood Cells 4.73 10^6/uL (4.0-5.20); Red Cell Distribution Width 14.8 % (11.8-14.3); White Blood Cell 7.6 10^3/uL (4.4-10.8)
[2023-05-02 20:14] LABS: Alanine Aminotransferase 29 U/L (7-40); Alkaline Phosphatase 115 U/L (46-116); Anion Gap 3 (5-15); Aspartate Aminotransferase 18 U/L (13-40); BUN/Creatinine Ratio 9.6 (10.0-20.0); Blood Urea Nitrogen 10 mg/dL (9-23); Calcium 9.5 mg/dL (8.7-10.4); Carbon Dioxide 29 mmol/L (20-30); Chloride 107 mmol/L (98-107); Glucose 106 mg/dL (74-106); Lipase 46 U/L (12-53); Potassium 3.9 mmol/L (3.5-5.1); Sodium 139 mmol/L (136-145)
[2023-05-02 20:15] LABS: Albumin 4.6 g/dL (3.2-4.8); Bilirubin, Total 0.3 mg/dL (0.2-1.0); Total Protein 7.9 g/dL (5.7-8.2)
[2023-05-02 22:02] LABS: Urine Bacteria FEW /hpf (None Seen); Urine Blood 3+ /uL (Negative); Urine Clarity HAZY (Clear); Urine Color Yellow (Yellow); Urine Protein, UAD TRACE (Negative); Urine Urobilinogen Normal (Negative); Urine WBC 286 /hpf (0 - 5); Urine pH 5.5 (5.0-8.0)
[2023-05-02] MEDS ORDERED: LEVO750T8 PO (22:53)
[2023-05-02] MEDS ORDERED: ACET300T58 PO (22:53)
[2023-05-02] MEDS ORDERED: HYDROcodone-ACET 5/325MG TAB PO ONE (23:00)
[2023-05-02 23:04] VITALS: BP 140/75; PULSE 62; RESP 18; TEMP 97.9; O2SAT 99
== END 2023-05-02 23:10 | disposition home or self-care (01) ==
LOC: ER 18:54 → EDBD 18:54 → ER 23:09
DX: K57.90 Diverticulosis of intestine, part unspecified, without perforation or abscess without bleeding (principal); N39.0 Urinary tract infection, site not specified; I12.9 Hypertensive chronic kidney disease with stage 1 through stage 4 chronic kidney disease, or unspecified chronic kidney disease; N18.9 Chronic kidney disease, unspecified; Z79.1 Long term (current) use of non-steroidal anti-inflammatories (NSAID); Z79.899 Other long term (current) drug therapy
CPT/HCPCS: 36415; 74176; 80053; 81001; 83690; 83880; 84484; 85025; 93005; 96372; 99285; J1170

== ENCOUNTER 2023-08-19 15:49 | Emergency (ER) | payer MEDICAID ==
[~2023-08-19] VITALS: Ht 170.2 cm; Wt 82.0 kg
[~2023-08-19 15:49] MED LIST changes: +ACET300T58 PO; +LEVO750T8 PO
[2023-08-19] MEDS ORDERED: MECLIZINE HCL 25 MG TAB PO ONE (16:15)
[2023-08-19 16:27] LABS: Hemoglobin 12.6 g/dL (12.2-16.2); Lymphocytes # (auto) 2.8 10 ^3/uL (0.4-5.4); Mean Corpuscular Hemoglobin 26.9 pg (28.0-32.0); Monocytes # (auto) 0.6 10 ^3/uL (0-1.3); Neutrophils # (auto) 4.5 10 ^3/uL (1.6-8.6); Red Cell Distribution Width 14.8 % (11.8-14.3)
[2023-08-19 16:28] LABS: Basophils # (auto) 0.1 10 ^3/uL (0-0.2); Basophils % (auto) 0.6 % (0.0-2.0); Eosinophils # (auto) 0.2 10 ^3/uL (0-0.8); Eosinophils % (auto) 1.8 % (0.0-7.0); Hematocrit 38.5 % (36.0-46.0); Lymphocytes % (auto) 34.9 % (10.0-50.0); Mean Corpuscular Hgb Conc. 32.8 g/dL (32.0-36.0); Mean Corpuscular Volume 81.8 fL (80.0-100.0); Monocytes % (auto) 7.5 % (0.0-12.0); Neutrophils % (auto) 55.2 % (37.0-80.0); Red Blood Cells 4.71 10^6/uL (4.0-5.20); White Blood Cell 8.2 10^3/uL (4.4-10.8)
[2023-08-19 16:45] LABS: Alanine Aminotransferase 23 U/L (7-40); Albumin 4.5 g/dL (3.2-4.8); Alkaline Phosphatase 115 U/L (46-116); Anion Gap 7 (5-15); Aspartate Aminotransferase 17 U/L (13-40); BUN/Creatinine Ratio 17.6 (10.0-20.0); Bilirubin, Total 0.5 mg/dL (0.2-1.0); Blood Urea Nitrogen 13 mg/dL (9-23); Calcium 9.5 mg/dL (8.5-10.1); Carbon Dioxide 27 mmol/L (20-30); Chloride 105 mmol/L (98-107); Glucose 93 mg/dL (74-106); Sodium 139 mmol/L (136-145); Total Protein 7.3 g/dL (5.7-8.2)
[2023-08-19 19:29] LABS: Urine Bacteria MANY /hpf (None Seen); Urine Blood TRACE /uL (Negative); Urine Clarity Clear (Clear); Urine Color Colorless (Yellow); Urine Mucus FEW (None Seen); Urine Protein, UAD Negative (Negative); Urine Specific Gravity 1.014 (1.001-1.035); Urine Urobilinogen Normal (Negative); Urine WBC 37 /hpf (0 - 5); Urine pH 5.5 (5.0-8.0)
[2023-08-19] MEDS ORDERED: MECL1TAB42 PO (20:08)
[2023-08-19] MEDS ORDERED: AMOX875T4 PO (20:08)
[2023-08-19] MEDS ORDERED: SULFAMETHOX W/TRIMETH(800/160MG) DS TAB PO ONE (20:15)
[2023-08-19 20:50] VITALS: BP 125/79; PULSE 76; RESP 18; TEMP 98.2; O2SAT 95
== END 2023-08-19 20:50 | disposition home or self-care (01) ==
LOC: ER 15:49 → EDBD 15:49 → ER 20:50
DX: N39.0 Urinary tract infection, site not specified (principal); R42 Dizziness and giddiness; I12.9 Hypertensive chronic kidney disease with stage 1 through stage 4 chronic kidney disease, or unspecified chronic kidney disease; N18.9 Chronic kidney disease, unspecified
CPT/HCPCS: 36415; 80053; 81001; 84443; 84484; 85025; 93005; 99284; J8597

== ENCOUNTER 2025-05-25 11:49 | Emergency (ER) | payer MEDICAID ==
[~2025-05-25] VITALS: Ht 167.6 cm; Wt 78.1 kg
[~2025-05-25 11:49] MED LIST changes: -ACET-1304 PO; -ACET300T58 PO; +ASPI-325 PO; +ATOR20TA50 PO; -CEPH-509 PO; -CEPH-510 PO; +CEPH250C PO; +ERGO1CAP12 PO; -IBUP-1456 PO; -LEVO750T8 PO; -LISI10TA34; +LISI20TA56 PO; -MECL1TAB32 PO; +MECL1TAB42 PO; +METF-370 PO; +NIFE1TAB31 PO; -PERCOT PO; +PROP60CA34 PO
--- NOTE | 2025-05-25 12:28 | ED.PDOC ---
General HPI Comments A 60 YEAR OLD FEMALE PRESENTS TO THE ED WITH COMPLAINT OF UTI SYMPTOMS. PATIENT STATES SHE HAS BEEN EXPERIENCING URINARY URGENCY, URINARY FREQUENCY, AND SUPRAPUBIC PRESSURE FOR THE PAST 5 DAYS. PATIENT NOTES THAT SHE HAS A HISTORY OF FREQUENT UTIS IN THE PAST. PATIENT REPORTS SHE HAS ALSO BEEN EXPERIENCING DIZZINESS WITH HER UTI SYMPTOMS. PATIENT DENIES HEMATURIA, FLANK PAIN, FEVER, CHILLS, SHORTNESS OF BREATH, CHEST PAIN, ABDOMINAL PAIN, NAUSEA, VOMITING, HEADACHE, OR OTHER COMPLAINTS. NO OTHER SYMPTOMS OR MODIFYING FACTORS AT THIS TIME. PATIENT IS ALERT, ORIENTED X 4, AND HAS STEADY GAIT. Chief Complaint: Urinary Time Seen by MD: 11:52 Primary Care Provider: UNKNOWN Reviewed notes: Nurses Notes, Medications, Allergies Allergies: Coded Allergies: NO KNOWN ALLERGIES (Unverified , 11/11/11) Home Meds Active Scripts Phenazopyridine HCl (Phenazopyridine Hydrochlo) 200 Mg Tab, 200 MG PO TID, #6 TAB Prov:NARA HELTON 05/25/25 Sulfamethoxazole W/Trimethopri (Bactrim Ds Tablet) 1 Tab Tb, 1 TAB PO BID for 10 Days, #20 TAB Prov:NARA HELTON 05/25/25 Cephalexin (KEFLEX CAPSULE) 250 Mg Cp, 2 CAP PO BID for 5 Days, #20 CAP Prov:GILBERTO BROWN DO 11/03/23 Nifedipine (Nifedipine Er) 30 Mg Tab, 1 TAB PO DAILY for 30 Days, #30 TAB 3 Refills Prov:GILBERTO BROWN DO 11/03/23 Lisinopril (Lisinopril) 20 Mg Tab, 20 MG PO DAILY for 30 Days, #30 TAB Prov:GILBERTO BROWN DO 11/03/23 Atorvastatin Calcium (ATORVASTATIN CALCIUM) 20 Mg Tab, 20 MG PO HS for 30 Days, #30 TAB 6 Refills Prov:GILBERTO BROWN DO 11/03/23 Aspirin (Aspirin Low Dose) 81 Mg Tab, 81 MG PO DAILY for 30 Days, #30 TAB 6 Refills Prov:GILBERTO BROWN DO 11/03/23 Meclizine HCl (Meclizine 25) 25 Mg Tab, 25 MG PO Q6HP PRN, #10 TAB Prov:MARVA COX PAC 08/19/23 Reported Medications Ergocalciferol (Vitamin D) 50,000 Unit Cap, 1 CAP PO QWEEKLY 11/03/23 Metformin Hydrochloride (Metformin Hcl) 500 Mg Tab, 1 TAB PO DAILY 11/03/23 Propranolol Hcl (Inderal La) 60 Mg Cap, 10 MG PO BID PRN for ANXIETY 11/03/23 Lisinopril (Lisinopril) 20 Mg Tab, 1 TAB PO DAILY 11/03/23 Atorvastatin Calcium (ATORVASTATIN CALCIUM) 20 Mg Tab, 1 TAB PO QHSP, #30 TAB 5 Refills 11/02/23 Information Source: Patient Mode of Arrival: Ambulatory Severity: Moderate Inability to void: None Timing: Days Duration: Since onset, Days Prehospital treatment: None Onset: Spontaneous Symptoms: Frequency, Urgency, Other (SUPRAPUBIC PRESSURE) History of: UTI Location: Suprapubic Modifying factors: None associated signs and symptoms: Frequency, Urgency Past Medical History PAST MEDICAL HISTORY: CKF, High Lipids, HTN, Thyroid, UTI'S Surgical History: Denies all surgeries [employer]S DEPARTMENT MANAGER History: Ovarian Cysts Family History Family History: Reviewed,noncontributory to illness Social History Smoker: Non-Smoker Alcohol: Denies ETOH Use Drugs: Denies Drug Use Lives In: Home Constitutional: denies: chills, diaphoresis, fatigue, fever, malaise, sweats, weakness, others EENTM: denies: blurred vision, double vision, ear bleeding, ear discharge, ear drainage, ear pain, ear ringing, eye pain, eye redness, hearing loss, mouth pain, mouth swelling, nasal discharge, nose bleeding, nose congestion, nose pain, photophobia, tearing, throat pain, throat swelling, voice changes, others Respiratory: denies: cough, hemoptysis, orthopnea, SOB at rest, shortness of breath, SOB with excertion, stridor, wheezing, others Cardiovascular: denies: chest pain, dizzy spells, diaphoresis, Dyspnea on exertion, edema, irregular heart beat, left arm pain, lightheadedness, palpitations, PND, syncope, others Gastrointestinal: denies: abdomen distended, abdominal pain, blood streaked bowels, constipated, diarrhea, dysphagia, difficulty swallowing, hematemesis, melena, nausea, poor appetite, poor fluid intake, rectal bleeding, rectal pain, vomiting, others Genitourinary: reports: frequency, pain (SUPRAPUBIC PRESSURE), urgency; denies: abnormal vagina bleeding, burning, dyspareunia, dysuria, flank pain, hematuria, , vagina discharge, others Neurological: denies: dizziness, fainting, headache, left sided numbness, left sided weakness, numbness, paresthesia, pre-existing deficit, right sided numbness, right sided weakness, seizure, speech problems, tingling, tremors, weakness, others Musculoskeletal: denies: back pain, gout, joint pain, joint swelling, muscle pain, muscle stiffness, neck pain, others Integumetry: denies: bruises, change in color, change in hair/nails, dryness, laceration, lesions, lumps, rash, wounds, others Allergic/Immunocompromised: denies: Difficulty Healing, Frequent Infections, Hives, Itching, others Hematologic/Lymphatic: denies: anemia, blood clots, easy bleeding, easy bruising, swollen glands, others Endocrine: denies: excessive hunger, excessive sweating, excessive thirst, excessive urination, flushing, intolerance to cold, intolerance to heat, unexplained weight gain, unexplained weight loss, others Psychiatric: denies: anxiety, bipolar disorder, depression, hopeless, panic disorder, schizophrenia, sleepless, suicidal, others All Other Systems: Reviewed and Negative Physical Exam General Appearance: Mild Distress, Normal, Other (ANXIOUS ) HEENT: Normal ENT Inspection, PERRL/EOMI, Pharynx Normal, TMs Normal Neck: Full Range of Motion, Non-Tender, Normal, Normal Inspection Respiratory: Chest Non-Tender, Lungs Clear, No Accessory Muscle Use, No Respiratory Distress, Normal Breath Sounds Cardiovascular: No Edema, No JVD, No Murmur, No Gallop, Normal Peripheral Pulses, Regular Rate/Rhythm Breast Exam: Deferred Gastrointestinal: No Organomegaly, No Pulsatile Mass, Normal Bowel Sounds, Soft, Suprapubic (PRESSURE. 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 Was a procedure done?: No Differential Diagnosis Kidney stone (Female): N/A Kidney stone (Male): N/A Penile/Scrotal: N/A Urinary Problem (Male): N/A Urinary Problem (Female): Pyelonephritis, Urolithiasis, UTI, Vaginitis X-Ray, Labs, Meds, VS Vital Signs Date Time Temp Pulse Resp B/P (MAP) Pulse Ox O2 Delivery O2 Flow Rate FiO2 05/25/25 13:04 80 18 98 Room Air 05/25/25 13:04 97.8 80 18 109/68 (82) 98 97.8 05/25/25 11:51 97.7 83 20 111/76 95 97.7 Lab Test 05/25/25 12:54 05/25/25 12:08 Range/Units White Blood Count 7.2 4.4-10.8 10^3/uL Red Blood Count 5.18 4.0-5.20 10^6/uL Hemoglobin 14.1 12.2-16.2 g/dL Hematocrit 42.8 36.0-46.0 % Mean Corpuscular Volume 82.6 80.0-100.0 fL Mean Corpuscular Hemoglobin 27.3 L 28.0-32.0 pg Mean Corpuscular Hemoglobin Concent 33.0 32.0-36.0 g/dL Red Cell Distribution Width 14.4 H 11.8-14.3 % Platelet Count 346 140-450 10^3/uL Mean Platelet Volume 7.0 6.9-10.8 fL Neutrophils (%) (Auto) 64.5 37.0-80.0 % Lymphocytes (%) (Auto) 26.8 10.0-50.0 % Monocytes (%) (Auto) 6.9 0.0-12.0 % Eosinophils (%) (Auto) 1.4 0.0-7.0 % Basophils (%) (Auto) 0.4 0.0-2.0 % Neutrophils # (Auto) 4.7 1.6-8.6 10 ^3/uL Lymphocytes # (Auto) 1.9 0.4-5.4 10 ^3/uL Monocytes # (Auto) 0.5 0-1.3 10 ^3/uL Eosinophils # (Auto) 0.1 0-0.8 10 ^3/uL Basophils # (Auto) 0 0-0.2 10 ^3/uL Nucleated Red Blood Cells 0.2 % Sodium Level 141 136-145 mmol/L Potassium Level 3.3 L 3.5-5.1 mmol/L Chloride Level 105 98-107 mmol/L Carbon Dioxide Level 25 20-31 mmol/L Anion Gap 11 5-15 Blood Urea Nitrogen 13 9-23 mg/dL Creatinine 0.98 0.550-1.02 mg/dL Glomerular Filtration Rate Calc 66 >90 mL/min BUN/Creatinine Ratio 13.3 10.0-20.0 Serum Glucose 130 H 74-106 mg/dL Calcium Level 9.7 8.7-10.4 mg/dL Thyroid Stimulating Hormone (TSH) 4.54 0.55-4.78 uIU/mL Urine Color Dark-yellow Yellow Urine Clarity Turbid H Clear Urine pH 5.5 5.0-9.0 Urine Specific [place] 1.025 1.001-1.035 Urine Protein 2+ H Negative Urine Ketones 1+ H Negative Urine Blood Negative Negative /uL Urine Nitrite Negative Negative Urine Bilirubin Negative Negative Urine Urobilinogen 2 H Negative mg/dL Urine Leukocyte Esterase 2+ Negative /uL Urine RBC 12 0 - 4 /hpf Urine Microscopic WBC 69 H 0-5 /HPF Urine Squamous Epithelial Cells Mod <5 /hpf Urine Bacteria Few H None Seen /hpf Urine Hyaline Casts Many 0 - 2 /lpf Urine Mucus Few None Seen Urine Glucose Normal Normal mg/dL X-Ray, Labs, Meds, VS Comment EXTERNAL MEDICAL RECORDS REVIEWED: [NONE] INDEPENDENT HISTORIANS: [NONE] SOCIAL DETERMINANTS OF HEALTH: [NONE] LABS ORDERED: UA, CBC, BNP, TSH REVIEWED AND INTERPRETED RESULTS: LEUKOCYTES 2+, BACTERIA MODERATE, K 3.3 IMAGING ORDERED: NONE TREATMENTS ORDERED: POTASSIUM 20 MEQ P.O. PROCEDURES PERFORMED: NONE CRITICAL CARE TIME: NONE I HAVE DISCUSSED THE PATIENT WITH THE ATTENDING PHYSICIAN DR. RESTREPO AND HE AGR EES WITH THE PATIENT'S PLAN OF CARE AND DISPOSITION. BASED ON HISTORY OF PRESENT ILLNESS, AND PHYSICAL EXAM, PATIENT WILL BE DI SCHARGED HOME. DISCUSSED PLAN FOR DISCHARGE HOME WITH RX [[facility]]. MEDICATION WARNINGS GIVEN. SHARED DECISION MAKING: DISCUSSED WITH PATIENT THAT THEIR WORKUP WAS NORMAL. PATIENT INSTRUCTED TO FOLLOW UP WITH PRIMARY CARE PROVIDER IN 1-2 DAYS FOR RE- EVALUATION OF SYMPTOMS. PATIENT VERBALIZES UNDERSTANDING TO RETURN TO ED FOR NEW OR WORSENING SYMPTOMS OR IF FOLLOW UP WITH PCP CANNOT BE OBTAINED. PATIENT FEELS COMFORTABLE GOING HOME AT THIS TIME. ALL QUESTIONS ADDRESSED AT TIME OF MARLENE ANSARI. Time of 1ST Reevaluation: 14:05 Reevaluation 1ST: Improved Patient Education/Counseling: Diagnosis, Treatment, Need For Follow Up Family Education/Counseling: Diagnosis, Treatment, Need For Follow Up Medical Screening: No EMC Exist At This Time SEPSIS Sepsis Screen Date sepsis recognized/suspect: May 25, 2025 Time Sepsis recognized/suspect: 1153 Recent Procedure: No On Antibiotic Therapy: No Respiratory Rate >20: No Heart Rate >90: No Temp<36 C (96.8 F) or >38.3 C: No SBP <90 or MAP <65 mmHG: No New Acute Mental Status Change: No Is the patient on CPAP, BIPAP,: No Physician Orders Potassium Er Tablet (Klor-Con Tablet) (05/25/25 14:15) Vital Signs Date Time Temp Pulse Resp B/P (MAP) Pulse Ox O2 Delivery O2 Flow Rate FiO2 05/25/25 13:04 80 18 98 Room Air 05/25/25 13:04 97.8 80 18 109/68 (82) 98 97.8 05/25/25 11:51 97.7 83 20 111/76 95 97.7 Laboratory Tests Test 05/25/25 12:54 White Blood Count 7.2 10^3/uL (4.4-10.8) Departure 1 Departure Time of Disposition: 14:20 Impression: Primary Impression: Acute UTI (urinary tract infection) Disposition: HOME / SELF CARE / HOMELESS Condition: Stable Additional Instructions: FOLLOW-UP WITH PCP IN 1 TO 2 DAYS. TAKE MEDICATIONS PRESCRIBED. RETURN TO ED FOR ANY NEW OR WORSENING SYMPTOMS. e-Prescriptions Phenazopyridine HCl (Phenazopyridine Hydrochlo) 200 Mg Tab 200 MG PO TID, #6 TAB Prov: NARA HELTON 05/25/25 Sulfamethoxazole W/Trimethopri (Bactrim Ds Tablet) 1 Tab Tb 1 TAB PO BID for 10 Days, #20 TAB Prov: NARA HELTON 05/25/25 Discharged With: Self Critical Care Note Critical Care Time?: No Stability Stability form required: No I personally scribed for NARA HELTON ([email or web address]) on 05/25/25 at 12:28. Electronically submitted by Vel Collado (KEY). I personally scribed for NARA HELTON ([email or web address]) on 05/25/25 at 14:00. Electronically submitted by Vel Collado (KEY). NARA HELTON May 25, 2025 12:28
[2025-05-25 12:59] LABS: Urine Protein, UAD 2+ (Negative)
[2025-05-25 13:04] VITALS: BP 109/68; PULSE 80; RESP 18; TEMP 97.8; O2SAT 98
[2025-05-25 13:04] LABS: Hematocrit 42.8 % (36.0-46.0); Hemoglobin 14.1 g/dL (12.2-16.2); Mean Corpuscular Hemoglobin 27.3 pg (28.0-32.0); Mean Corpuscular Volume 82.6 fL (80.0-100.0); Nucleated Red Blood Cells % 0.2 %
[2025-05-25 13:10] LABS: Chloride 105 mmol/L (98-107); Sodium 141 mmol/L (136-145)
[2025-05-25 13:11] LABS: Anion Gap 11 (5-15); Calcium 9.7 mg/dL (8.7-10.4); Carbon Dioxide 25 mmol/L (20-31)
[2025-05-25 13:16] LABS: BUN/Creatinine Ratio 13.3 (10.0-20.0); Blood Urea Nitrogen 13 mg/dL (9-23)
[2025-05-25 13:17] LABS: Glucose 130 mg/dL (74-106); Potassium 3.3 mmol/L (3.5-5.1)
[2025-05-25] MEDS ORDERED: PHEN-922 PO (14:03)
[2025-05-25] MEDS ORDERED: BACDST PO (14:03)
[2025-05-25] MEDS: POTASSIUM CHL 20 Meq TABLET PO ONE (14:19)
== END 2025-05-25 14:21 | disposition home or self-care (01) ==
LOC: ER 11:49
DX: N39.0 Urinary tract infection, site not specified (principal); I11.0 Hypertensive heart disease with heart failure; I50.9 Heart failure, unspecified; E03.9 Hypothyroidism, unspecified; E78.5 Hyperlipidemia, unspecified; Z79.82 Long term (current) use of aspirin; Z79.84 Long term (current) use of oral hypoglycemic drugs; Z79.899 Other long term (current) drug therapy
CPT/HCPCS: 36415; 80048; 81001; 84443; 85025